=== PATIENT | female | born 1985 | race Two or more races ===

== ENCOUNTER 2019-06-01 11:20 | Emergency (ER) | payer MEDICAID ==
[~2019-06-01] VITALS: Ht 167.6 cm; Wt 113.9 kg
--- NOTE | 2019-06-01 11:40 | NUR ---
patient came to the ER c/o upper back pain, fever, and chills, ambulatory with steady gait, on room air, breathing evenly and unlabored. kept comfortable, will continue to monitor accordingly.
[2019-06-01] MEDS ORDERED: KETOROLAC TROMETHAMINE INJ 30 MG/ML VIAL ONE (12:15)
[2019-06-01] MEDS ORDERED: HYDROCODONE BIT/HOMATROPINE 5 ML UDC ONE (12:15)
--- NOTE | 2019-06-01 12:21 | NUR ---
urine collected and sent to lab.
--- NOTE | 2019-06-01 12:25 | NUR ---
odette at bedside for x-ray.
[2019-06-01] MEDS ORDERED: HYDROCODONE BIT/HOMATROPINE 5 ML UDC PO ONE (12:30)
[2019-06-01] MEDS ORDERED: KETOROLAC TROMETHAMINE INJ 30 MG/ML VIAL IM ONE (12:30)
[2019-06-01 12:35] LABS: APPEARANCE,URINE Clear (CLEAR); BILIRUBIN,URINE Negative (NEGATIVE); BLOOD, URINE Moderate Ery/uL (NEGATIVE); COLOR,URINE Yellow (YELLOW); KETONES,URINE Negative (NEGATIVE); LEUKOCYTE ESTERASE ,URINE Trace (NEGATIVE); NITRITE, URINE Negative (NEGATIVE); PH,URINE 5.5 (5.0-8.0); PROTEIN,URINE Negative (NEGATIVE); UGLUCOSE Negative (NEGATIVE); UROBILINOGEN,URINE 0.2 EU/dL (0.2)
[2019-06-01 12:43] LABS: BACTERIA,URINE Few /HPF (None Seen)
[2019-06-01 12:44] LABS: SQUAMOUS EPITHELIAL CELL,UR Few /HPF (None Seen)
[2019-06-01 13:11] VITALS: BP 135/71
== END 2019-06-01 13:11 | disposition home or self-care (01) ==
LOC: ER 11:28
DX: S29.012A Strain of muscle and tendon of back wall of thorax, initial encounter (principal); J06.9 Acute upper respiratory infection, unspecified; X58.XXXA Exposure to other specified factors, initial encounter; Y93.89 Activity, other specified; Y92.89 Other specified places as the place of occurrence of the external cause; Y99.8 Other external cause status
CPT/HCPCS: 71045; 81001; 84703; 96372; 99284; J1885; 81000-TC

== ENCOUNTER 2021-05-15 17:41 | Emergency (ER) | payer MEDICAID ==
[~2021-05-15] VITALS: Ht 167.6 cm; Wt 77.1 kg
[2021-05-15 17:51] VITALS: BP 123/78
--- NOTE | 2021-05-15 17:53 | NUR ---
PT CAME TO ER C/O COUGH, CHEST AND BACK PAIN SINCE 05/10/21. TESTED COVID+ YESTERDAY. AAOX4, BREATHING EVEN AND UNLABORED
--- NOTE | 2021-05-15 18:34 | NUR ---
AAOX4, BREATHING EVEN AN UNLABORED
[2021-05-15] MEDS ORDERED: BENZ200C53 PO (18:50)
[2021-05-15] MEDS ORDERED: ACET-2605 PO (18:50)
--- NOTE | 2021-05-15 19:22 | NUR ---
Patient discharged to home in stable condition. Written and verbal after care instructions given. Patient verbalizes understanding of instruction.
== END 2021-05-15 19:27 | disposition home or self-care (01) ==
LOC: ER 17:48
DX: U07.1 COVID-19 (principal); Z79.899 Other long term (current) drug therapy
CPT/HCPCS: 71045-TC

== ENCOUNTER 2022-12-12 14:48 | Emergency (ER) | payer MEDICAID ==
[~2022-12-12] VITALS: Ht 170.2 cm; Wt 90.7 kg
[~2022-12-12 14:48] MED LIST: ACET-2605 PO; BENZ200C53 PO
[2022-12-12] MEDS ORDERED: IBUP-1953 PO (17:19)
[2022-12-12] MEDS ORDERED: CEPH500T PO (17:19)
[2022-12-12 17:24] VITALS: BP 132/78; TEMP 97.6; O2SAT 98
== END 2022-12-12 17:25 | disposition home or self-care (01) ==
LOC: ER 14:55
DX: I80.02 Phlebitis and thrombophlebitis of superficial vessels of left lower extremity (principal); L03.116 Cellulitis of left lower limb
CPT/HCPCS: 93971-TC

== ENCOUNTER 2024-08-06 15:37 | Emergency (ER) | payer MEDICAID ==
[~2024-08-06] VITALS: Ht 167.6 cm; Wt 95.3 kg
[~2024-08-06 15:37] MED LIST changes: +CEPH500T PO; +IBUP-1953 PO
[2024-08-06 16:49] LABS: APPEARANCE,URINE SLIGHTLY CLOUDY (CLEAR); BILIRUBIN,URINE NEGATIVE (NEGATIVE); BLOOD, URINE 3+ Ery/uL (NEGATIVE); COLOR,URINE YELLOW (YELLOW); KETONES,URINE NEGATIVE (NEGATIVE); LEUKOCYTE ESTERASE ,URINE 3+ (NEGATIVE); NITRITE, URINE NEGATIVE (NEGATIVE); PROTEIN,URINE TRACE mg/dl (NEGATIVE); UGLUCOSE NEGATIVE (NEGATIVE); UROBILINOGEN,URINE 0.2 EU/dL (0.2)
[2024-08-06 16:55] LABS: PREGNANCY TEST URINE QUAL NEGATIVE (NEGATIVE)
[2024-08-06 16:57] LABS: ADD URINE CULTURE YES; BACTERIA,URINE 3+ /HPF (None Seen); RBC,URINE 51-80 /HPF (0-2); SQUAMOUS EPITHELIAL CELL,UR 0-2 /HPF (None Seen); WBC,URINE 51-80 /HPF (0-3)
[2024-08-06] MEDS ORDERED: NITR100C PO (17:05)
[2024-08-06 17:21] VITALS: BP 134/68; TEMP 98.1; O2SAT 96
== END 2024-08-06 17:21 | disposition home or self-care (01) ==
LOC: ER 15:46
DX: N39.0 Urinary tract infection, site not specified (principal)
CPT/HCPCS: 81001; 84703-TC; 87086-TC; 87186-TC